=== PATIENT | female | born 1985 ===

== ENCOUNTER 2024-01-10 06:00 | Day surgery (SDC) | payer OTHER ==
[2024-01-04 09:09] LABS: HEMATOCRIT 36.1 % (36.0-45.00); HEMOGLOBIN 12.4 g/dL (12.0-15.00); MEAN CELL VOLUME 88.8 fL (80.00-100.00); MEAN CORPUSCULAR HEMOGLOBIN 30.4 pg (27.00-32.0); MEAN CORPUSCULAR HGB CONC 34.2 g/dl (32.0-36.0); PLATELET COUNT 319 K/uL (150-450); RED BLOOD COUNT 4.07 M/uL (4.00-6.00); RED CELL DISTRIBUTION WIDTH 15.6 % (11.5-14.5)
[2024-01-04 09:15] LABS: URINE APPEARANCE Cloudy; URINE BILIRRUBIN Negative (NEGATIVE); URINE BLOOD Negative; URINE COLOR Yellow; URINE GLUCOSE Negative (NEGATIVE); URINE LEUKOCYTE Small; URINE NITRATE Negative; URINE PROTEIN Negative (NEGATIVE)
[2024-01-04 09:20] LABS: URINE BACTERIA 3185.1 uL (0.0-1933); URINE EPITHELIAL CELLS 24.5 uL (0.0-38.8)
[2024-01-04 09:33] LABS: INR 0.94; PARTIAL THROMBOPLASTIN TIME 25.3 SECONDS (22.0-34.0); PROTHROMBIN TIME 9.9 SECONDS (9.0-11.5)
[2024-01-04 09:48] LABS: ALBUMIN 3.6 gm/dL (3.4-5.0); BILIRUBIN TOTAL 0.41 mg/dL (0.3-1.2); CALCIUM 9.4 mg/dL (8.5-10.1); CREATININE SERUM 0.69 mg/dL (0.55-1.02); GFR 95.22; GLOBULINA 4.1 G/DL (2.4-3.5); POTASSIUM 4.38 mEq/L (3.5-5.1); TOTAL PROTEIN 7.7 gm/dL (6.4-8.2); TSH 2.31 uIU/mL (0.358-3.74)
[2024-01-10] MEDS ORDERED: CEFOXITIN SODIUM 2,000 MG VIAL IV ONE (09:50)
[2024-01-10] MEDS ORDERED: POVIDONE-IODINE 118 ML BOTT TOP ONE (11:41)
[2024-01-10] MEDS ORDERED: PROMETHAZINE HCL 50 MG/ML AMPUL IM ONE (13:00)
[2024-01-10] MEDS ORDERED: MORPHINE SULFATE 4 MG/ML VIAL IV PRN (13:00)
[2024-01-10] MEDS ORDERED: NAPR500T14 PO (13:06)
[2024-01-10] MEDS ORDERED: MORGIDOX100 MG PO (13:06)
== END 2024-01-10 18:15 | disposition home or self-care (01) ==
LOC: CIR.AMB 06:00
PROVIDERS: ATTEND Obstetrics & Gynecology
DX: D25.0 Submucous leiomyoma of uterus (principal); N84.0 Polyp of corpus uteri; N92.5 Other specified irregular menstruation; E03.9 Hypothyroidism, unspecified